=== PATIENT | female | born 1995 | race Two or more races ===

== ENCOUNTER → 2017-12-19 | Emergency (ER) | payer OTHER ==
[~2017-12-19] VITALS: Ht 157.5 cm; Wt 49.9 kg
[~2017-12-19] MED LIST: KETO10TA2 PO
== END | disposition home or self-care (01) ==
LOC: ER 22:21
DX: S80.11XA Contusion of right lower leg, initial encounter (principal); W20.8XXA Other cause of strike by thrown, projected or falling object, initial encounter; Y93.89 Activity, other specified; Y92.234 Operating room of hospital as the place of occurrence of the external cause; Y99.8 Other external cause status

== ENCOUNTER 2018-03-23 17:14 | Emergency (ER) | payer OTHER ==
[~2018-03-23] VITALS: Ht 162.6 cm; Wt 51.7 kg
[2018-03-23] MEDS ORDERED: DUI500 PO (18:03)
[2018-03-23] MEDS ORDERED: SILVADENE20 GM TOP (18:03)
== END 2018-03-23 19:26 | disposition home or self-care (01) ==
LOC: ER 17:14
DX: T22.211A Burn of second degree of right forearm, initial encounter (principal); X19.XXXA Contact with other heat and hot substances, initial encounter; Y93.89 Activity, other specified; Y92.69 Other specified industrial and construction area as the place of occurrence of the external cause; Y99.8 Other external cause status

== ENCOUNTER 2018-03-25 13:47 | Outpatient (CLI) | payer OTHER ==
[~2018-03-25 13:47] MED LIST changes: +DUI500 PO; +SILVADENE20 GM TOP
== END 2018-03-25 13:49 | disposition home or self-care (01) ==
LOC: LAB 13:47 → CERTIFICAD 13:47 → LAB 13:49
DX: Z11.3 Encounter for screening for infections with a predominantly sexual mode of transmission (principal)

== ENCOUNTER → 2019-09-22 14:06 | Outpatient (CLI) | payer OTHER | END | disposition home or self-care (01) | LOC: CERTIFICAD 14:06 → LAB 14:06 | DX: Z11.1 Encounter for screening for respiratory tuberculosis (principal) ==

== ENCOUNTER → 2019-11-04 | Outpatient (CLI) | payer OTHER | END | disposition home or self-care (01) | LOC: PPH VACUNA 09:00 | DX: Z23 Encounter for immunization (principal) ==

== ENCOUNTER 2020-03-01 07:41 | Outpatient (CLI) | payer OTHER | END 2020-03-01 08:07 | disposition home or self-care (01) | LOC: SONOGRAMA 07:41 → MAMO-SONO 07:41 → SONOGRAMA 08:07 | PROVIDERS: ATTEND Obstetrics & Gynecology Gynecology | DX: N83.291 Other ovarian cyst, right side (principal); N94.5 Secondary dysmenorrhea; N70.11 Chronic salpingitis ==

== ENCOUNTER 2020-11-10 08:00 | Outpatient (CLI) | payer OTHER | END 2020-11-10 08:15 | disposition home or self-care (01) | LOC: PPH VACUNA 08:00 | PROVIDERS: ATTEND Emergency Medicine Pediatric Emergency Medicine | DX: Z23 Encounter for immunization (principal) ==

== ENCOUNTER 2021-12-26 16:52 | Outpatient (CLI) | payer OTHER | END 2021-12-26 16:56 | disposition home or self-care (01) | LOC: LAB 16:52 | PROVIDERS: ATTEND Anesthesiology | DX: Z03.818 Encounter for observation for suspected exposure to other biological agents ruled out (principal) ==